=== PATIENT | female | born 1995 | race Caucasian/White ===

== ENCOUNTER → 2020-09-16 | Outpatient (REF) | payer SELFPAY ==
[2020-09-16 19:24] LABS: CHLAMYDIA DNA AMPLIFICATION NEGATIVE (NEGATIVE); GC DNA AMPLIFICATION NEGATIVE (NEGATIVE)
== END ==
LOC: M WUC 17:15
PROVIDERS: ATTEND Physician Assistant
DX: N76.0 Acute vaginitis (principal)

== ENCOUNTER 2021-03-22 01:29 | Day surgery (SDC) | payer OTHER ==
[~2021-03-22] VITALS: Ht 162.6 cm; Wt 64.0 kg
[2021-03-22 04:37] LABS: BASO % 0.2 % (0.0-1.0); EOS % 0.1 % (0.0-3.0); HEMATOCRIT 40.3 % (36.0-47.0); HEMOGLOBIN 13.4 g/dl (12.0-15.5); LYMPH # 1.3 10^3/uL (1.5-5.0); LYMPH % 11.1 % (24.0-44.0); MEAN CORPUSCULAR HEMOGLOBIN 30.2 pg (27.0-33.0); MEAN CORPUSCULAR HGB CONC 33.3 g/dl (32.0-36.5); MONO # 0.4 10^3/uL (0.0-0.8); MONO % 3.6 % (2.0-8.0); NEUTROPHILS # 10.2 10^3/uL (1.5-8.5); NEUTROPHILS % 84.5 % (36.0-66.0); PLATELET COUNT, AUTOMATED 253 10^3/uL (150-450); RED BLOOD COUNT 4.43 10^6/uL (4.00-5.40); WHITE BLOOD COUNT 12.1 10^3/uL (4.0-10.0)
[2021-03-22 05:00] LABS: HCG, SERUM QUALITATIVE NEGATIVE (NEGATIVE)
[2021-03-22 05:11] LABS: BLOOD UREA NITROGEN 11 MG/DL (7-18); CALCIUM LEVEL 9.3 MG/DL (8.5-10.1); CARBON DIOXIDE LEVEL 27 MEQ/L (21-32); CHLORIDE LEVEL 108 MEQ/L (98-107); CK-MB VALUE MASS 1.6 NG/ML (<3.6); CPK CREATINE PHOSPHOKINASE 93 U/L (26-192); CREATININE FOR GFR 0.77 MG/DL (0.55-1.30); GLOMERULAR FILTRATION RATE > 60.0 (>60); GLUCOSE, FASTING 111 MG/DL (70-100); MB/CK RELATIVE INDEX 1.72 (< OR =4); POTASSIUM SERUM 4.4 MEQ/L (3.5-5.1); SODIUM LEVEL 138 MEQ/L (136-145); TROPONIN I < 0.02 NG/ML (< 0.10)
[2021-03-22] MEDS ORDERED: NS 1,000 ML IV ONE (05:45)
[2021-03-22] MEDS ORDERED: ISOVUE-370 76% 100ML VIAL As Ordered ONE (05:49)
[2021-03-22 07:33] LABS: ALBUMIN 4.1 GM/DL (3.2-5.2); ALT/SGPT 20 U/L (12-78); BILIRUBIN,DIRECT 0.3 MG/DL (0.0-0.2); BILIRUBIN,TOTAL 1.2 MG/DL (0.2-1.0); LIPASE 97 U/L (73-393); TOTAL PROTEIN 7.1 GM/DL (6.4-8.2)
[2021-03-22] MEDS ORDERED: NS 1,000 ML IV SCH (07:55)
--- NOTE | 2021-03-22 07:57 | REPVR ---
PROCEDURE INFORMATION: Exam: CT Abdomen And Pelvis With Contrast Exam date and time: 03/22/2021 5:44 AM Age: 26 years old Clinical indication: Abdominal pain; Generalized; Patient HX: Pain and syncope after sex; Additional info: Severe lower abd pain, syncope after intercourse TECHNIQUE: Imaging protocol: Computed tomography of the abdomen and pelvis with contrast. Radiation optimization: All CT scans at this facility use at least one of these dose optimization techniques: automated exposure control; mA and/or kV adjustment per patient size (includes targeted exams where dose is matched to clinical indication); or iterative reconstruction. Contrast material: ISO; Contrast volume: 100 ml; Contrast route: INTRAVENOUS (IV); COMPARISON: No relevant prior studies available. FINDINGS: Lungs: The visualized portions of the lung bases are normal. Liver: The liver appears normal. Gallbladder and bile ducts: The gallbladder is contracted, limiting its assessment. No definite stones identified. There is no biliary ductal dilation. Pancreas: The pancreas is normal with no ductal dilation. Spleen: The spleen is normal. Adrenal glands: The adrenal glands are normal. Kidneys and ureters: The kidneys are unremarkable. There is no hydronephrosis. The nondilated distal ureters are difficult to trace, but no stones are seen along their expected course. Stomach and bowel: The small bowel appears unremarkable. There is no dilation or thickening of the colon. Appendix: The appendix is not specifically identified. Intraperitoneal space: There is a small amount of hyperdense free intraperitoneal fluid present in the abdomen, including around the liver and spleen and in the bilateral paracolic gutters, as well as in the pelvis. Poorly defined hyperdense tissue in the pelvis posterior to the uterus and extending superiorly on the right side of the pelvis probably represents clotted blood. Approximate measurements of this hyperdense tissue are 7.1 x 3.9 x 4.9 cm. Vasculature: No aortic aneurysm. Lymph nodes: No lymphadenopathy is seen. Urinary bladder: The bladder is unremarkable. No stones identified. Reproductive: See Intraperitoneal space findings. The right ovary is not distinguishable from the right pelvic hematoma. There is an IUD in the uterus which appears to be in the expected position at the uterine body and fundus. Bones/joints: Unremarkable. No acute fracture. Soft tissues: Unremarkable. IMPRESSION: 1. Hemoperitoneum and poorly defined hyperdense tissue in the pelvis and right adnexa most consistent with clotted blood/hematoma. The right ovary cannot be distinguished from this tissue. A ruptured ovarian cyst may be the cause of the hemoperitoneum. 2. IUD in the uterus, which appears to be in the expected position. COMMENTS: THIS REPORT CONTAINS FINDINGS THAT MAY BE CRITICAL TO PATIENT CARE. The findings were verbally communicated via telephone conference with Dr. Medrano at 7:51 AM EDT on 03/22/2021. The findings were acknowledged and understood. Electronically signed by: Priscilla Brand On 03/22/2021 07:57:28 AM
--- NOTE | 2021-03-22 07:57 | ECGEPIP ---
[facility] - ED Test Date: 2021-03-22 Pat Name: LATONYA VARGAS Department: Room: - Gender: Female Digital Retoucher: WALDO : 1995 Requested By: JIE Lazaro Order Number: [id number] Reading MD: Momo Liang Measurements Intervals [place] Rate: 71 P: 66 IL: 130 QRS: 74 QRSD: 80 T: 39 QT: 410 QTc: 445 Interpretive Statements Normal sinus rhythm INCOMPLETE RIGHT BUNDLE BRANCH BLOCK NO PRIORS FOR COMPARISON Electronically Signed on 03-22-2021 7:56:54 EDT by Momo Liang
[2021-03-22] MEDS ORDERED: PROBCAP17 PO (08:07)
[2021-03-22] MEDS ORDERED: MIRE1IUD IU (08:07)
[2021-03-22] MEDS ORDERED: HOME MED LIST COMPLETE! XX SCH (08:10)
[2021-03-22] MEDS ORDERED: ACETAMINOPHEN *IV* 1,000 MG in IV 1 EA IV ONE (08:50)
[2021-03-22 08:51] LABS: RSV AMPLIFICATION NEGATIVE (NEGATIVE)
--- NOTE | 2021-03-22 09:07 | REP ---
INDICATION: hemoperitoneum eval for ovarian cyst. COMPARISON: None. TECHNIQUE: Routine ultrasound FINDINGS: The uterus measures 7.7 x 3.6 x 4.5 cm. An IUD is in satisfactory position. There is surrounding echogenic fluid consistent with blood. The right ovary measures 3.4 x 3.2 x 3.3 cm. There is a 9 x 5 x 7 cm complex echo pattern adnexal mass most likely representing hemorrhagic cyst. There is surrounding echogenic fluid consistent with blood. The left ovary measures 2.4 x 1.7 x 2.3 cm the echo pattern is normal. IMPRESSION: Large hemorrhagic cyst right ovary with free fluid in the pelvis. <Electronically signed by C[address]ar St > 03/22/21 0949
--- NOTE | 2021-03-22 09:16 | HPEPDOC ---
General Date of Admission Date of Service: Mar 22, 2021 Chief Complaint The patient is a 26-year-old female admitted with a reason for visit of Abd Pain. History of Present Illness Ms. Peña is a 26yo G0 who presented to the ER with severe abdominal pain that started after intercourse at 2000 last night but became severe at 0000. She describes it as a "severe cramp" that is constant and worse with movement. She reports that the pain was so severe she passed out last night and hit her head. On ROS she reports diarrhea x2 watery without blood. She endorsed nausea. She denied vomitting, chest pain, shortness of breath, fevers, chills, vaginal bleeding, discharge, or urinary symptoms. She last had food at 1600 yesterday and water at 0000. HISTORY OB: G0 [employer]GE[employer]: chlamydia x1 MHX: Anxiety, remote history of depression SHX: WTE ALL: denied MEDS: denied SOC: occasional etoh, former smoker FHX: denied obgyn specialist/colon cancers EXAM GEN: AAOX3, NAD CARDS: RRR PULM: CTA BL ABD: tenderness in BL LQ with +rebound/gaurding in the RLQ, pain reproduced with bed shape and heel tap, negative obturator/psoas/murphys signs PSYCH: normal affect and insight EXTREM: ND, no edema, neg homans LABS H/H 13/40 hCG negative CMP unremarkable TSH normal COVID negative troponin negative CKMB normal STUDIES EKG WNL ED NEURO exam WNL CT ABD: 7.1cm hyperdense free intraperitoneal fluid, right ovary cannot be disti nguished from the fluid, IUD in expected position TVUS: suspected right 9cm hemorrhagic cyst ASSESSMENT Ms. Peña is a 26yo G0 who presented to the ER with severe abdominal pain that caused her to have syncope and hit her head. On ROS she reported diarrhea and nausea. She was initially hypotensive but this resolved with IVF. She has an elevated HR in the 90s but it is WNL. On exam she has an acute abdomen with R>LLQ pain. Her H/H is 13/14. On imaging she has a significant abount of blood in the abdomen and a right 9cm likely hemorrhagic ovarian cyst. She had a syncope work up to include CKMB, troponin, EKG, and neuro exam in the ER which were normal. I discussed with the patient expectant and surgical management risks of each, given her acute abdomen and 9cm cyst with possibility of continued bleeding as well as torsion I recommend surgical management. She would like to proceed with surgical management. She was educated on the risks of surgery to include bleeding, blood clot, damage to internal organs, infection, oophorectomy, menopause, bladder/bowel injury, need for boston catheter, need for blood transfusion, anesthesia reactions up to and including . Written consent was obtained. Will proceed to the OR laparoscopic right ovarian cystectomy and oophorectomy as indicated with evacuation of hemoperitoneum with other procedures and biopsies as indicated. PLAN - admit to the pre-op holding area - prn occupational therapist to the OR - tylenol and scopolamine for pre-op meds - ABX PPX not indicated - SCDs and early ambulation for DVT PPX - VS q15 min until procedure - NPO, bedrest Nisa Home Medications Scheduled Lactobacillus Combo No.11 (Probiotic) 1 Each Cap.sprink, 1 CAP PO DAILY, (Reported) Levonorgestrel (Mirena) 1 Each Iud, 20 MCG IU ASDIRECTED, (Reported) Allergies Coded Allergies: No Known Allergies (Unverified , 03/22/21) Social History * Smoker: non-smoker A-FIB/CHADSVASC A-FIB History Current/History of A-Fib/PAF?: No Vital Signs Vital Signs Date Time Temp Pulse Resp B/P (MAP) Pulse Ox O2 Delivery O2 Flow Rate FiO2 03/22/21 06:45 59 102/56 (71) 99 03/22/21 01:32 97.8 16 Room Air Laboratory Data Labs 24H Laboratory Tests 2 03/22/21 04:22: Immature Granulocyte % (Auto) 0.5, Neutrophils (%) (Auto) 84.5H, Lymphocytes (%) (Auto) 11.1L, Monocytes (%) (Auto) 3.6, Eosinophils (%) (Auto) 0.1, Basophils (%) (Auto) 0.2, Neutrophils # (Auto) 10.2H, Lymphocytes # (Auto) 1.3L, Monocytes # (Auto) 0.4, Eosinophils # (Auto) 0.0, Basophils # (Auto) 0.0, Nucleated Red Blood Cells % (auto) 0.0, Anion Gap 3L, Glomerular Filtration Rate > 60.0, Calcium Level 9.3, Total Bilirubin 1.2H, Direct Bilirubin 0.3H, Aspartate Amino Transf (AST/SGOT) 18, Alanine Aminotransferase (ALT/SGPT) 20, Alkaline Phosphatase 73, Total Creatine Kinase 93, Creatine Kinase MB 1.6, Creatine Kinase MB Relative Index 1.72, Troponin I < 0.02, Total Protein 7.1, Albumin 4.1, Albumin/Globulin Ratio 1.4, Lipase 97, Thyroid Stimulating Hormone (TSH) 1.820, Human Chorionic Gonadotropin, Qual NEGATIVE 03/22/21 04:38: Bedside Glucose (Misc Panel) 117H 03/22/21 07:59: Coronavirus (COVID-19)(PCR) NEGATIVE, Influenza Type A (RT-PCR) NEGATIVE, Influenza Type B (RT-PCR) NEGATIVE, Respiratory Syncytial Virus (PCR) NEGATIVE CBC/BMP Laboratory Tests 03/22/21 04:22 Plan / VTE VTE Prophylaxis Ordered?: Yes PEARL SOLIMAN DO Mar 22, 2021 09:16
[2021-03-22] MEDS ORDERED: BUPIVACAINE HCL 0.25% 10ML VIAL As Ordered ONE (09:59)
[2021-03-22] MEDS ORDERED: SCOPOLAMINE 1MG TRANSDERMAL PATCH As Ordered ONE (10:19)
[2021-03-22] MEDS ORDERED: SCOPOLAMINE 1MG TRANSDERMAL PATCH TOP SCH (11:00)
[2021-03-22] MEDS ORDERED: SILVER NITRATE APPLICATOR As Ordered ONE (11:32)
[2021-03-22] MEDS ORDERED: MIDAZOLAM INJ 2MG/2ML VIAL (J2250 PER 1MG) As Ordered ONE (11:52)
[2021-03-22] MEDS ORDERED: dexameTHASONE 4 MG/ML 1ML VIAL (J1100 PER 1MG) As Ordered ONE (11:52)
[2021-03-22] MEDS ORDERED: ePHEDrine SULFATE 25 MG/5 ML(5MG/ML) SYRINGE As Ordered ONE (11:52)
[2021-03-22] MEDS ORDERED: LIDOCAINE 2% 100MG/5ML SDV (FOR ANES.) As Ordered ONE (11:52)
[2021-03-22] MEDS ORDERED: SUGAMMADEX SODIUM 500 MG/5 ML VIAL (BRIDION) As Ordered ONE (11:52)
[2021-03-22] MEDS ORDERED: ONDANSETRON 4MG/2ML VIAL As Ordered ONE (11:52)
[2021-03-22] MEDS ORDERED: fentaNYL 250 MCG/5 ML INJECTION (J3010) As Ordered ONE (11:52)
[2021-03-22] MEDS ORDERED: propofoL 200 MG/20 ML VIAL As Ordered ONE (11:52)
[2021-03-22] MEDS ORDERED: KETOROLAC 60MG 2ML VIAL As Ordered ONE (11:52)
[2021-03-22] MEDS ORDERED: ROCURONIUM BROMIDE 50 MG/5 ML VIAL As Ordered ONE (11:52)
[2021-03-22] MEDS ORDERED: ACETAMINOPHEN 1000MG 100ML IV BTL (OFIRMEV) (J0131 PER 10MG) As Ordered ONE (11:52)
[2021-03-22] MEDS ORDERED: METOCLOPRAMIDE INJ 10MG/2ML VIAL (J2765 PER 1) IV PRN (12:15)
[2021-03-22] MEDS ORDERED: MEPERIDINE INJ 25 MG/ML VIAL (J2175) IV PRN (12:15)
[2021-03-22] MEDS ORDERED: fentaNYL 100 MCG/2 ML INJECTION (J3010) IV PRN (12:15)
[2021-03-22] MEDS ORDERED: LR 1,000 ML IV SCH (12:15)
[2021-03-22] MEDS ORDERED: ONDANSETRON 4MG/2ML VIAL IV PRN (12:15)
[2021-03-22] MEDS ORDERED: oxyCODONE 5MG TAB PO PRN ×3 (12:15→13:00)
--- NOTE | 2021-03-22 13:30 | ROOPDOC ---
[facility] Report Of Operation Report of Operation DATE OF PROCEDURE: 03/22/21 PREPROCEDURE DIAGNOSES: hemoperitoneum, right hemorrhagic ovarian cyst, acute abdomen POSTPROCEDURE DIAGNOSES: hemoperitoneum, right hemorrhagic ovarian cyst, endometriosis PROCEDURE PERFORMED: laparoscopic evacuation of hemoperitoneum SURGEON: Rodger Soliman DO STRIKER OUT: Amanda Hyde DO ANESTHESIA: general ESTIMATED BLOOD LOSS: Approximately 350 mL. COMPLICATIONS: none REMARKS: none FINDINGS: 350cc hemoperitoneum, deflated hemorrhagic right ovarian cyst with slight oozing SPECIMENS REMOVED: none PROCEDURE NOTE: The risks, benefits, and alternatives of the procedure were discussed and written consent obtained. 1000mg tylenol and a scopolamine patch were given pre- op. The patient was taken to the OR where she underwent general anesthesia. She was positioned in low lithotomy in the yellow fins with her arms tucked. The vagina, abdomen, and perineum were prepped and draped in a sterile fashion. A boston was placed in the bladder. A final time out was performed. A surgical speculum was placed and the anterior lip of the cervix grasped with a single tooth tenaculum. An acorn uterine manipulator was placed and the speculum was removed. Gloves were changed. 0.25% marcaine was injected into the infraumbilical fold and a 5mm incision made. A 5mm port was placed via the direct technique. The opening pressure was 5 mmHg and there was no trauma below the entry site. The area 2cm superior and medial to the bilateral ASISs was identified via transillumination and 0.25% marcaine injected. 5mm incisions were made and 5mm ports placed under direct visualization. There was 350cc of blood evacuated from the pelvis. The uterus, left ovary, and tubes appeared normal. There was endometriosis on the uterosacral ligaments. The right ovary had a hemorrhagic ovarian cyst that was deflated and had a slight ooze. A ligasure was used to cauterize the edge of the ruptured cyst and it was hemostatic. Javon was applied over the cyst. The remaining cyst wall was hemostatic. The ports were removed under direct visualization and were hemostatic. The pneumoperitoneum was slowly released and the cyst remained hemostatic. The umbilical port was removed. The port sites were reapproximated with 4-0 monocryl and secured with dermabond. A speculum was replaced and the tenaculm and manipulator removed. The puncture sites were hemostatic with the aid of silver nitrate. The boston was removed. The sponge, lap, and needle counts were correct x2. There were no complications. The patient was transferred to the PACU in stable condition. RODGER SOLIMAN DO Mar 22, 2021 13:30
[2021-03-22 14:45] VITALS: BP 104/55
[2021-03-22] MEDS ORDERED: IBUPROFEN 800 MG TAB PO SCH (18:00)
[2021-03-22] MEDS ORDERED: ACETAMINOPHEN 500 MG TAB PO SCH (22:00)
== END 2021-03-22 14:48 | disposition home or self-care (01) ==
LOC: M ED 05:21 → M SDC 05:22 → M ED 09:14 → M SDC 14:48
PROVIDERS: ATTEND Obstetrics & Gynecology
DX: K66.1 Hemoperitoneum (principal); N83.201 Unspecified ovarian cyst, right side; N80.0 Endometriosis of uterus; R10.9 Unspecified abdominal pain; R55 Syncope and collapse; R11.0 Nausea; F41.9 Anxiety disorder, unspecified; Z87.891 Personal history of nicotine dependence; Z97.5 Presence of (intrauterine) contraceptive device; Z79.899 Other long term (current) drug therapy
CPT/HCPCS: 58661; 74177; 76830; 76856; 80048; 80076; 82550; 82553; 83690; 84443; 84484; 84703; 85025; 86850; 86900; 86901; 87631; 93005; 93041; 93976; 94760; 99285; J0131; J1100; J1885; J2250; J2405; J3010; Q9967